=== PATIENT | female | born 1955 | race African-American/Black ===

== ENCOUNTER 2016-07-24 17:05 | Emergency (ER) | payer MEDICAID ==
[~2016-07-24] VITALS: Ht 167.6 cm; Wt 69.0 kg
[2016-07-24 17:55] LABS: BASOPHILS % 0.4 % (0.0-2.0); HEMATOCRIT. 36.9 % (36.0-48.0); HEMOGLOBIN. 12.4 g/dL (12.0-16.0); LYMPHOCYTES % 35.5 % (20.0-50.0); MEAN CORPUSCULAR HEMOGLOBIN 31.3 pg (28.0-32.0); MEAN CORPUSCULAR VOLUME 92.8 fL (81.0-99.0); MEAN PLATELET VOLUME 7.8 fl (7.4-10.4); MONOCYTES % 7.5 % (2.0-8.0); NEUTROPHILS % 51.6 % (40.0-76.0); PLATELET 287 x1000/uL (130-400); RED BLOOD CELL COUNT 3.97 mill/uL (4.2-5.4); RED CELL DISTRIBUTION WIDTH 13.5 % (11.6-14.6)
[2016-07-24 18:04] LABS: D-DIMER 0.48 mg/L FEU (<0.50); PROTHROMBIN TIME 10.3 sec
[2016-07-24 18:12] LABS: CARBON DIOXIDE 29 mEq/L (21-32); CHLORIDE 109 mEq/L (98-107); TROPONIN I < 0.02 ng/mL (0.00-0.04)
[2016-07-24] MEDS ORDERED: ASPIRIN 325MG TABLET PO NR (19:00)
[2016-07-24 19:40] VITALS: BP 138/78
== END 2016-07-24 20:35 | disposition left against medical advice (07) ==
LOC: ER 18:49
DX: R07.9 Chest pain, unspecified (principal); R06.02 Shortness of breath; R42 Dizziness and giddiness; M19.90 Unspecified osteoarthritis, unspecified site; Z98.890 Other specified postprocedural states
CPT/HCPCS: 36415; 71010; 80053; 83880; 84484; 85025; 85379; 85610; 93005; 99285

== ENCOUNTER 2018-07-20 19:17 | Emergency (ER) | payer MEDICAID ==
[~2018-07-20] VITALS: Ht 167.6 cm; Wt 69.0 kg
[2018-07-20] MEDS ORDERED: ONDANSETRON HCL 4MG/2ML INJ IV STA (23:54)
[2018-07-20] MEDS ORDERED: MORPHINE SULFATE 4 MG/ML CPJ (NOT FOR IM USE) IV STA (23:54)
[2018-07-20] MEDS ORDERED: SODIUM CHLORIDE 0.9% 1,000 ML IV ONE (23:54)
[2018-07-21] MEDS ORDERED: KETOROLAC 15MG/ML VIAL IV ONE (00:30)
[2018-07-21 00:31] LABS: EOSINOPHILS % 3.6 % (0.0-5.0); HEMATOCRIT. 36.9 % (36.0-48.0); HEMOGLOBIN. 12.8 g/dL (12.0-16.0); LYMPHOCYTES % 47.7 % (20.0-50.0); MEAN CORPUSCULAR HEMOGLOBIN 32.7 pg (28.0-32.0); MEAN PLATELET VOLUME 7.9 fl (7.4-10.4); NEUTROPHILS % 40.7 % (40.0-76.0); PLATELET 240 x1000/uL (130-400); RED BLOOD CELL COUNT 3.93 mill/uL (4.2-5.4); RED CELL DISTRIBUTION WIDTH 13.9 % (11.6-14.6)
[2018-07-21 00:40] LABS: CHLORIDE 110 mEq/L (98-107)
[2018-07-21 03:20] VITALS: BP 100/80
== END 2018-07-21 03:26 | disposition home or self-care (01) ==
LOC: ER 21:00
DX: S09.8XXA Other specified injuries of head, initial encounter (principal); S39.012A Strain of muscle, fascia and tendon of lower back, initial encounter; S16.1XXA Strain of muscle, fascia and tendon at neck level, initial encounter; S83.91XA Sprain of unspecified site of right knee, initial encounter; M19.90 Unspecified osteoarthritis, unspecified site; W10.8XXA Fall (on) (from) other stairs and steps, initial encounter; Y93.89 Activity, other specified; Y92.89 Other specified places as the place of occurrence of the external cause; Y99.8 Other external cause status
CPT/HCPCS: 36415; 70450; 71045; 72100; 72125; 73562; 73630; 80048; 85025; 96374; 96375; 99284; J1885; J2405; J7030